=== PATIENT | female | born 1960 | race Caucasian/White ===

== ENCOUNTER 2016-12-01 23:02 | Emergency (ER) | payer OTHER ==
[2016-12-01] MEDS ORDERED: Ondansetron HCl/PF 4 MG/2 ML Vial ONE (23:14)
[2016-12-01 23:30] LABS: #Basophils 0.1 thou/uL (0.0-0.2); #Eosinphils 0.1 thou/uL (0.0-0.7); #Lymphocytes 1.9 thou/uL (1.20-3.40); #Monocytes 0.6 thou/uL (0.11-0.59); %Basophils 1.2 % (0.0-1.0); %Eosinophils 1.5 % (0.0-10.0); %Monocytes 7.8 % (0.0-10.0); Hematocrit 41.3 % (36.0-47.0); Mean Platelet Volume 7.1 fL (7.4-10.4); Red Blood Cell (RBC) Count 4.48 mill/uL (4.20-5.40); White Blood Cell (WBC) Count 7.6 thou/uL (4.8-10.8)
[2016-12-01 23:40] LABS: Anion Gap 16 mmol/L (10-20); BUN (Urea Nitrogen) 16 mg/dL (9.8-20.1); Calc. Creatinine Clearance 0 mL/min (70-130); Calcium 9.5 mg/dL (7.8-10.44); Carbon Dioxide 25 mmol/L (22-29); Chloride 103 mmol/L (98-107); Estimated GFR-MDRD 67
--- NOTE | 2016-12-02 02:22 | ERRECORD ---
[facility] EMERGENCY RECORD HPI MENTAL STATUS CHANGES (23:14 RW) CHIEF COMPLAINT: Patient presents for evaluation of confusion, Patient presents for evaluation of unresponsiveness, Patient presents for evaluation of blood sugar on scene was 22. now over 200 after D50 given by EMS. Pt's temp is 92 degrees. HISTORIAN: History provided by patient's spouse, , Additional history obtained from EMS. LOCATION: Symptoms are generalized. QUALITY: Patient is alert and oriented to person, place and time, [place] coma score is 15. SEVERITY: Maximum severity of symptoms moderate, Currently symptoms are moderate, Maximum severity of pain rated as 0/10, Current severity of pain rated as 0/10. TIME COURSE: Patient unable to describe onset of symptoms. ASSOCIATED WITH: Associated with nausea, intermittent, Associated with weakness, intermittent. EXACERBATED BY: Patient's condition exacerbated by nothing. RELIEVED BY: Patient's condition relieved by IV D50. RISK FACTORS: No CVA/TIA risk factors, No subarachnoid hemorrhage risk factors. CRITICAL CARE: Time spent providing critical care to patient was 30-74 minutes, 60 minutes. ROS (23:16 RW) CONSTITUTIONAL: Historian reports weight loss. EYES: Negative eye review of systems. ENT: Negative ears, nose, throat review of systems. CARDIOVASCULAR: Negative cardiovascular review of systems. RESPIRATORY: Negative respiratory review of systems. GI: Negative gastrointestinal review of systems. GENITOURINARY FEMALE: Negative genitourinary review of systems. MUSCULOSKELETAL: Negative musculoskeletal review of systems. SKIN: Negative skin review of systems. NEUROLOGIC: Historian reports confusion. ENDOCRINE: Negative endocrine review of systems. HEMO/LYMPHATIC: Normal hematologic/lymphatic system review. ALLERGIC/IMMUNOLOGIC: Normal allergy/immunologic system review. PSYCHIATRIC: Negative psychiatric review of systems. NOTES: All systems reviewed, negative except as described above. PAST MEDICAL HISTORY (23:08 PGRI) MEDICAL HISTORY: Notes: DM2, Flu vaccine up to date, Tetanus immunization up to date, Past medical history includes history of hypertension, which has been treated. FEMALE SURGICAL HISTORY: Surgical history of hysterectomy. PSYCHIATRIC HISTORY: No previous psychiatric history. SOCIAL HISTORY: Patient denies alcohol use, Patient denies drug use, Patient has no smoking history. &a-1R&a+25V*p+0X*[id number]*c202B*c15G*c2P*p-0X&a-25V&a+1R Name: Мария Barakat : 1960 F56 MedRec: [id number] AcctNum: [id number] Prepared: TueDec 02, 2016 05:46 by Interface Page 1 of 3 pMD [facility] EMERGENCY RECORD KNOWN ALLERGIES No Known Drug Allergies CURRENT MEDICATIONS No recorded medications VITAL SIGNS VITAL SIGNS: BP: 134/80, Pulse: 74, Resp: 18 (Non-Labored), Temp: 92.0 (Rectal), Pain: 0, O2 sat: 99 on Room Air, Time: 12/01/2016 23:10. (23:10 PGRI) BP: 140/77, Pulse: 79, Resp: 15, O2 sat: 100 on Room Air, Time: 12/01/2016 23:31. (23:31 MVIL) BP: 112/56, Pulse: 79, Temp: 93.4 (Rectal), O2 sat: 100 on Room Air, Time: 12/02/2016 00:07. (TueDec 02, 2016 00:07 MVIL) BP: 113/75, Pulse: 84, Resp: 23, Temp: 95.3 (Rectal), Pain: 0, O2 sat: 98 on Room Air, Time: 12/02/2016 01:05. (TueDec 02, 2016 01:05 MVIL) BP: 106/54, Pulse: 70, Resp: 20, Temp: 96.9 (Rectal), Pain: 0, O2 sat: 99 on Room Air, Time: 12/02/2016 02:04. (TueDec 02, 2016 02:04 MVIL) PHYSICAL EXAM (23:17 RWAG) CONSTITUTIONAL: Vital Signs Reviewed, Pulse normal, Blood pressure normal, Respiratory rate normal, Normal pulse oximetry, Patient appears non toxic, Patient appears pain free, hypothermia. HEAD: Head exam normal. EYES: Eye exam normal. ENT: ENT exam normal. NECK: Neck exam normal. RESPIRATORY CHEST: Respiratory and chest exam normal. CARDIOVASCULAR: Cardiovascular assessment normal. ABDOMEN FEMALE: Abdominal exam normal. BACK: Back exam normal. UPPER EXTREMITY: Upper extremity exam normal. LOWER EXTREMITY: Lower extremity exam normal. NEURO: Neuro exam findings include patient oriented to person, place and time, Speech normal, [place] coma scale 15. SKIN: Skin exam normal. LYMPHATIC: Lymphatic exam normal. PSYCHIATRIC: Psychiatric exam included findings of patient oriented to person place and time. EKG INTERPRETATION (23:41 RW) 12 LEAD EKG INTERPRETATION: 12 lead EKG interpreted by Emergency Department Physician at time of study, 12 lead EKG shows normal sinus rhythm, Rate (beats per minute): 69, with no ectopics, No previous EKG available for comparison, Conduction normal, ST segments normal, T waves, inverted, Leads affected: V2, [place] normal, Clinical impression: Normal EKG. MEDICATION ADMINISTRATION SUMMARY &a-1R&a+25V*p+0X*[id number]*c202B*c15G*c2P*p-0X&a-25V&a+1R Name: Мария Barakat : 1960 F56 MedRec: [id number] AcctNum: [id number] Prepared: TueDec 02, 2016 05:46 by Interface Page 2 of 3 pMD [facility] EMERGENCY RECORD Drug Name: ondansetron HCl intravenous, Dose Ordered: 8 mg, Route: IV Push, Status: Given, Time: 23:15 12/01/2016, Detailed record available in Medication Service section. PROBLEM LIST No recorded problems DIAGNOSIS (TueDec 02, 2016 02:05 RWAG) FINAL: PRIMARY: Hypoglycemia (unspecified), ADDITIONAL: HYPOTHERMIA INITIAL ENCOUNTER. PRESCRIPTION No recorded prescriptions DISPOSITION PATIENT: Disposition Type: Discharge, Disposition: *Discharge Home, Disposition Transport: Car, Condition: Improved. (TueDec 02, 2016 02:05 RWAG) Patient left the department. (TueDec 02, 2016 02:17 MVIL) Hall: MVIL=EMMA Norman, Serene PGRI=EMMA Calzada, Zahida RWAG=MD Wili, Bg &a-1R&a+25V*p+0X*[id number]*c202B*c15G*c2P*p-0X&a-25V&a+1R Name: Мария Barakat : 1960 F56 MedRec: [id number] AcctNum: [id number] Prepared: TueDec 02, 2016 05:46 by Interface Page 3 of 3 pMD MTDD
--- NOTE | 2016-12-02 02:28 | PICIS ---
[facility] EMERGENCY RECORD TRIAGE (23:06 PGRI) TRIAGE NOTES: BS initially 20 on scene and unresponsive for ems. 2amps D50 given. Rectal temp 92.0. Patient A&OX4 upon arrival but lethargic. (23:06 PGRI) PATIENT: NAME: Мария Barakat, AGE: 56, GENDER: female, : Tue1960, TIME OF GREET: TueDec 01, 2016 23:02, PREFERRED LANGUAGE: Tamazight, ETHNICITY: Not or , ECODE BILLING MAP: [facility], SSN: [id number], Zip Code: [address], KG WEIGHT: 72.57, PHONE: , , , PERSON ID: [id number]. (23:06 PGRI) COMPLAINT: Hypoglycemia. (23:06 PGRI) ADMISSION: URGENCY: 2 Emergent, ADMISSION SOURCE: Home, TRANSPORT: AMBULANCE - [facility], BED: TRIAGE. (23:06 PGRI) TRIAGE SCREENING: Patient denies suicidal ideation, Patient denies presence of domestic violence. (23:08 PGRI) PROVIDERS: TRIAGE NURSE: Zahida Calzada RN. (23:06 PGRI) KNOWN ALLERGIES No Known Drug Allergies CURRENT MEDICATIONS No recorded medications VITAL SIGNS VITAL SIGNS: BP: 134/80, Pulse: 74, Resp: 18 (Non-Labored), Temp: 92.0 (Rectal), Pain: 0, O2 sat: 99 on Room Air, Time: 12/01/2016 23:10. (23:10 PGRI) BP: 140/77, Pulse: 79, Resp: 15, O2 sat: 100 on Room Air, Time: 12/01/2016 23:31. (23:31 MVIL) BP: 112/56, Pulse: 79, Temp: 93.4 (Rectal), O2 sat: 100 on Room Air, Time: 12/02/2016 00:07. (TueDec 02, 2016 00:07 MVIL) BP: 113/75, Pulse: 84, Resp: 23, Temp: 95.3 (Rectal), Pain: 0, O2 sat: 98 on Room Air, Time: 12/02/2016 01:05. (TueDec 02, 2016 01:05 MVIL) BP: 106/54, Pulse: 70, Resp: 20, Temp: 96.9 (Rectal), Pain: 0, O2 sat: 99 on Room Air, Time: 12/02/2016 02:04. (TueDec 02, 2016 02:04 MVIL) NURSING ASSESSMENT: FOCUSED (23:06 MVIL) CONSTITUTIONAL: Patient arrives, via stretcher, via [facility], Unsteady gait, Inability to ambulate, History obtained from, Emergency Medical [facility], Patient appears comfortable, Patient cooperative, Patient, lethargic, Patient is, confused, Skin abnormal, Skin temperature is cold, Skin dry, Skin, pale in color, Mucous membranes pink, Mucous membranes moist, Patient is well-groomed, Patient complains of hypoglycemic, ems administered on scene 2 amps of D50 IV for FS of 33. Patient's rectal temp 92F. Bear hugger in place. Will reassess patient within the hour. NEURO: Focused neuro assessment findings include patient responsive to painful stimuli, cooperative, No facial droop &a-1R&a+25V*p+0X*t8662I*c202B*c15G*c2P*p-0X&a-25V&a+1R Name: Мария Barakat : 1960 F56 MedRec: [id number] AcctNum: [id number] Prepared: TueDec 02, 2016 05:51 by Interface Page 1 of 8 pMD [facility] EMERGENCY RECORD noted, Silent, Weakness, no numbness, No loss of consciousness. GCS: Eye opening: (2) - To pain, Verbal: (4) - Confused/disoritiented, Motor: (5) - Localizes Pain, GCS Total: 11. RESPIRATORY: Focused respiratory assessment findings include breath sounds clear, to bilateral upper lobes. ABDOMEN: Focused abdominal assessment findings include abdomen soft, non tender, Nausea present. GENITOURINARY FEMALE: Focused genitourinary assessment not applicable. MUSCULOSKELETAL: Focused musculoskeletal assessment findings include normal range of motion. LACERATION: Focused laceration assessment not applicable. SAFETY: Side rails up, Cart/Stretcher in lowest position, Family at bedside, Call light within reach, Hospital ID band on. NURSING PROCEDURE: BENCH MOLDER APPRENTICE (23:12 PGRI) PATIENT IDENTIFIER: Patient actively involved in identification process, Patient's identity verified by patient stating name, Patient's identity verified by patient stating date. BENCH MOLDER APPRENTICE: Cardiac monitoring indicated for mental status changes, Patient placed on manager retail store, Patient placed on non-invasive blood pressure monitor, Patient placed on continuous pulse oximetry. SAFETY: Side rails up, Cart/Stretcher in lowest position, Family at bedside, Call light within reach, Hospital ID band on. NURSING PROCEDURE: DISCHARGE NOTE (TueDec 02, 2016 02:12 MVIL) DISCHARGE: Patient discharged to home, ambulating without assistance, family driving, accompanied by //partner, Summary of Care printed/ provided, Patient requested and was provided an electronic copy of Discharge Instructions, Transition record given to patient, Discharge instructions given to patient, Above person(s) verbalized understanding of discharge instructions and follow-up care. BELONGINGS: Belongings and valuables with patient at time of discharge include:. NURSING PROCEDURE: EKG CHART (23:33 PGRI) PATIENT IDENTIFIER: Patient actively involved in identification process, Patient's identity verified by patient stating name, Patient's identity verified by patient stating date. EK lead EKG performed on the left chest, done by ers.ppg, first EKG. SAFETY: Side rails up, Cart/Stretcher in lowest position, Family at bedside, Call light within reach, Hospital ID band on. NURSING PROCEDURE: IV PATIENT IDENITIFIER: Patient actively involved in identification &a-1R&a+25V*p+0X*p1361V*c202B*c15G*c2P*p-0X&a-25V&a+1R Name: Мария Barakat : 1960 F56 MedRec: [id number] AcctNum: [id number] Prepared: TueDec 02, 2016 05:51 by Interface Page 2 of 8 D [facility] EMERGENCY RECORD process, Patient's identity verified by patient stating name, Patient's identity verified by patient stating date. (23:11 PGRI) Patient actively involved in identification process, Patient's identity verified by patient stating name, Patient's identity verified by hospital ID bracelet. (23:30 MVIL) IV SITE 1: IV therapy indicated for hydration, IV therapy indicated for medication administration, IV established, to the left antecubital, using a 20 gauge catheter, in one attempt, Saline lock established, Notes: started officer captain by ems. (23:11 PGRI) IV SITE 2: IV therapy indicated for medication administration, IV established, to the right hand, using a 20 gauge catheter, in one attempt, Saline lock established, Flushed with normal saline (mls): 10, Labs drawn at time of placement, labeled in the presence of the patient and sent to lab. (23:30 MVIL) FOLLOW-UP SITE 1: After procedure, 2x3 ensure dressing applied, After procedure, IV line connections checked and properly labeled, After procedure, no drainage at IV site, After procedure, no swelling at IV site, After procedure, no redness at IV site. (23:30 MVIL) SAFETY: Side rails up, Cart/Stretcher in lowest position, Family at bedside, Call light within reach, Hospital ID band on. (23:11 PGRI) NURSING PROCEDURE: NURSE NOTES NURSES NOTES: Notes: FS 217 AT THIS TIME. VSS. PATIENT REMAINS WITH BEAR HUGGER ACTIVE FOR A RECTAL TEMP OF 93.4F AT THIS TIME. (TueDec 02, 2016 00:08 MVIL) Notes: FS 268. PATIENT REMAINS ON BEAR HUGGER WITH AT RECTAL TEMP OF 95.3F AT THIS TIME. (TueDec 02, 2016 01:04 MVIL) Notes: pt now A&OX4 and awake and alert talking to . will recheck temp and BS now. (TueDec 02, 2016 01:58 PGRI) Notes: FS 269. RECTAL TEMP 96.9F. PATIENT AWAKE AND ALERT. STATES"WOULD LIKE TO GO HOME". DR. RASHEED MADE AWARE. (TueDec 02, 2016 02:02 MVIL) ORDER DETAILS Order Name: Accucheck, Status: Done, Time: 23:11 12/01/2016, User: PGRI, - Ordered for: MD Rasheed Richard, - Entered by: MD Rasheed Richard - Jeison Dec 01, 2016 23:10, - Quantity: 1, Order Name: Basic Metabolic Panel, Status: Active, Time: 23:10 12/01/2016, User: RWAG, - Ordered for: MD Rasheed Richard, - Entered by: MD Rasheed Richard - TueDec 01, 2016 23:10, - Quantity: 1, Order Name: CBC with Differential, Status: Active, Time: 23:10 12/01/2016, User: JAMES, - Ordered for: MD Rasheed Richard, &a-1R&a+25V*p+0X*e2736Q*c202B*c15G*c2P*p-0X&a-25V&a+1R Name: Мария Barakat : 1960 F56 MedRec: [id number] AcctNum: [id number] Prepared: [facility] Dec 02, 2016 05:51 by Interface Page 3 of 8 D [facility] EMERGENCY RECORD - Entered by: MD Rasheed Richard - TueDec 01, 2016 23:10, - Quantity: 1, Order Name: EKG 12 Lead in Emergency Room, Status: Active, Time: 23:10 12/01/2016, User: JAMES, - Ordered for: MD Rasheed Richard, - Entered by: MD Rasheed Richard - [facility] Dec 01, 2016 23:10, - Quantity: 1, Order Name: Miscellaneous Nurse Order(s), Status: Done, Time: 23:29 12/01/2016, User: NAHED, - Ordered for: MD Rasheed Richard, - Entered by: MD Rasheed Richard - [facility] Dec 01, 2016 23:13, - Quantity: 1, Order Name: Miscellaneous Nurse Order(s), Status: Done, Time: 23:12 12/01/2016, User: ROSALINE, - Ordered for: MD Rasheed Richard, - Entered by: MD Rasheed Richard - [facility] Dec 01, 2016 23:11, - Quantity: 1. MEDICATION ADMINISTRATION SUMMARY Drug Name: ondansetron HCl intravenous, Dose Ordered: 8 mg, Route: IV Push, Status: Given, Time: 23:15 12/01/2016, Detailed record available in Medication Service section. MEDICATION SERVICE (23:15 RW) ondansetron HCl intravenous: Order: ondansetron HCl intravenous (ondansetron HCl) - Dose: 8 mg : IV Push Schedule: Now Ordered by: Bg Rasheed MD Entered by: Bg Rasheed MD TueDec 01, 2016 23:12 , Acknowledged by: Serene Norman, EMMA TueDec 01, 2016 23:13 Documented as given by: Serene Norman RN TueDec 01, 2016 23:15 Patient, Medication, Dose, Route and Time verified prior to administration. Amount given: 8mg, IV SITE #1 IVP, initial medication, Catheter placement confirmed via flush prior to administration, IV site without signs or symptoms of infiltration during medication administration, No swelling during administration, No drainage during administration, IV flushed after administration, Correct patient, time, route, dose and medication confirmed prior to administration, Patient advised of actions and side-effects prior to administration, Allergies confirmed and medications reviewed prior to administration, Patient in position of comfort, Side rails up, Cart in lowest position, Family at bedside. HPI MENTAL STATUS CHANGES (23:14 RW) CHIEF COMPLAINT: Patient presents for evaluation of confusion, Patient presents for evaluation of unresponsiveness, Patient presents for evaluation of blood &a-1R&a+25V*p+0X*y7308Z*c202B*c15G*c2P*p-0X&a-25V&a+1R Name: Мария Barakat : 1960 F56 MedRec: [id number] AcctNum: [id number] Prepared: [facility] Dec 02, 2016 05:51 by Interface Page 4 of 8 pMD [facility] EMERGENCY RECORD sugar on scene was 22. now over 200 after D50 given by EMS. Pt's temp is 92 degrees. HISTORIAN: History provided by patient's spouse, , Additional history obtained from EMS. LOCATION: Symptoms are generalized. QUALITY: Patient is alert and oriented to person, place and time, Akira coma score is 15. SEVERITY: Maximum severity of symptoms moderate, Currently symptoms are moderate, Maximum severity of pain rated as 0/10, Current severity of pain rated as 0/10. TIME COURSE: Patient unable to describe onset of symptoms. ASSOCIATED WITH: Associated with nausea, intermittent, Associated with weakness, intermittent. EXACERBATED BY: Patient's condition exacerbated by nothing. RELIEVED BY: Patient's condition relieved by IV D50. RISK FACTORS: No CVA/TIA risk factors, No subarachnoid hemorrhage risk factors. CRITICAL CARE: Time spent providing critical care to patient was 30-74 minutes, 60 minutes. ROS (23:16 RWAG) CONSTITUTIONAL: Historian reports weight loss. EYES: Negative eye review of systems. ENT: Negative ears, nose, throat review of systems. CARDIOVASCULAR: Negative cardiovascular review of systems. RESPIRATORY: Negative respiratory review of systems. GI: Negative gastrointestinal review of systems. GENITOURINARY FEMALE: Negative genitourinary review of systems. MUSCULOSKELETAL: Negative musculoskeletal review of systems. SKIN: Negative skin review of systems. NEUROLOGIC: Historian reports confusion. ENDOCRINE: Negative endocrine review of systems. HEMO/LYMPHATIC: Normal hematologic/lymphatic system review. ALLERGIC/IMMUNOLOGIC: Normal allergy/immunologic system review. PSYCHIATRIC: Negative psychiatric review of systems. NOTES: All systems reviewed, negative except as described above. PAST MEDICAL HISTORY (23:08 PGRI) MEDICAL HISTORY: Notes: DM2, Flu vaccine up to date, Tetanus immunization up to date, Past medical history includes history of hypertension, which has been treated. FEMALE SURGICAL HISTORY: Surgical history of hysterectomy. PSYCHIATRIC HISTORY: No previous psychiatric history. SOCIAL HISTORY: Patient denies alcohol use, Patient denies drug use, Patient has no smoking history. PHYSICAL EXAM (23:17 RWAG) CONSTITUTIONAL: Vital Signs Reviewed, Pulse normal, Blood pressure normal, Respiratory rate normal, Normal pulse oximetry, Patient appears non toxic, Patient appears pain free, &a-1R&a+25V*p+0X*v5920B*c202B*c15G*c2P*p-0X&a-25V&a+1R Name: Мария Barakat : 1960 F56 MedRec: [id number] AcctNum: [id number] Prepared: Angela Dec 02, 2016 05:51 by Interface Page 5 of 8 pMD [facility] EMERGENCY RECORD hypothermia. HEAD: Head exam normal. EYES: Eye exam normal. ENT: ENT exam normal. NECK: Neck exam normal. RESPIRATORY CHEST: Respiratory and chest exam normal. CARDIOVASCULAR: Cardiovascular assessment normal. ABDOMEN FEMALE: Abdominal exam normal. BACK: Back exam normal. UPPER EXTREMITY: Upper extremity exam normal. LOWER EXTREMITY: Lower extremity exam normal. NEURO: Neuro exam findings include patient oriented to person, place and time, Speech normal, Akira coma scale 15. SKIN: Skin exam normal. LYMPHATIC: Lymphatic exam normal. PSYCHIATRIC: Psychiatric exam included findings of patient oriented to person place and time. EVENTS TRANSFER: Triage to Emergency Triage. (TueDec 01, 2016 23:06 PGRI) Emergency Triage to Emergency Room -01. (23:06 PGRI) Removed from Emergency Emergency Room -01. (TueDec 02, 2016 02:17 MVIL) EKG INTERPRETATION (23:41 RWAG) 12 LEAD EKG INTERPRETATION: 12 lead EKG interpreted by Emergency Department Physician at time of study, 12 lead EKG shows normal sinus rhythm, Rate (beats per minute): 69, with no ectopics, No previous EKG available for comparison, Conduction normal, ST segments normal, T waves, inverted, Leads affected: V2, [place] normal, Clinical impression: Normal EKG. PROBLEM LIST No recorded problems DIAGNOSIS (TueDec 02, 2016 02:05 RWAG) FINAL: PRIMARY: Hypoglycemia (unspecified), ADDITIONAL: HYPOTHERMIA INITIAL ENCOUNTER. DISPOSITION PATIENT: Disposition Type: Discharge, Disposition: *Discharge Home, Disposition Transport: Car, Condition: Improved. (TueDec 02, 2016 02:05 RWAG) Patient left the department. (TueDec 02, 2016 02:17 MVIL) INSTRUCTION (TueDec 02, 2016 02:06 RWAG) DISCHARGE: HYPOGLYCEMIA INSULIN REACTION, HYPOTHERMIA, TREATMENT. FOLLOWUP: DO BOSS KRISTEL, [facility], [address] [place] [id number], [phone], Follow up with Primary Care Physician &a-1R&a+25V*p+0X*i6917J*c202B*c15G*c2P*p-0X&a-25V&a+1R Name: Мария Barakat : 1960 F56 MedRec: [id number] AcctNum: [id number] Prepared: TueDec 02, 2016 05:51 by Interface Page 6 of 8 pMD [facility] EMERGENCY RECORD in 2-3 days. SPECIAL: Follow-up with your PCP. PRESCRIPTION No recorded prescriptions IMAGING *DISCHARGE INSTRUCTIONS RECEIPT: Image captured from scanner. (TueDec 02, 2016 02:12 MVIL) *SUPPLY CHARGE SHEET: Image captured from scanner. (TueDec 02, 2016 02:12 MVIL) *EKG: Image captured from scanner. (TueDec 02, 2016 05:41 MVIL) ADMIN (TueDec 02, 2016 05:40 RWAG) DIGITAL SIGNATURE: MD Rasheed Richard. RESULTS LABORATORY: Accuchek Collection DT: TueDec 01, 2016 23:15, *Accuchek 205 - H mg/dL, Range (70-110), NOTIFIED PHYSICIAN . (23:19 RWAG) CBC with Differential Collection DT: TueDec 01, 2016 23:24, White Blood Cell (WBC) Count 7.6 thou/uL, Range (4.8-10.8), Red Blood Cell (RBC) Count 4.48 mill/uL, Range (4.20-5.40), Hemoglobin 13.4 g/dL, Range (12.0-16.0), Hematocrit 41.3 %, Range (36.0-47.0), Mean Corpuscular Volume 92.1 fl, Range (81.0-99.0), Mean Corpuscular Hemoglobin 29.9 pg, Range (27.0-31.0), Mean Corpuscular HGB CONC 32.5 g/dL, Range (32.0-36.0), RBC Distribution Width 11.5 %, Range (11.5-14.5), Platelet Count 227 thou/uL, Range (130-400), *Mean Platelet Volume 7.1 - L fL, Range (7.4-10.4), %Neutrophils 64.8 %, Range (42.0-75.0), %Lymphocytes 24.7 %, Range (21.0-51.0), %Monocytes 7.8 %, Range (0.0-10.0), %Eosinophils 1.5 %, Range (0.0-10.0), *%Basophils 1.2 - H %, Range (0.0-1.0), #Neutrophils 5.0 thou/uL, Range (1.40-6.50), #Lymphocytes 1.9 thou/uL, Range (1.20-3.40), *#Monocytes 0.6 - H thou/uL, Range (0.11-0.59), #Eosinphils 0.1 thou/uL, Range (0.0-0.7), #Basophils 0.1 thou/uL, Range (0.0-0.2). (23:38 RWAG) Basic Metabolic Panel Collection DT: TueDec 01, 2016 23:24, Sodium 140 mmol/L, Range (136-145), Potassium 3.8 mmol/L, Range (3.5-5.1), Chloride 103 mmol/L, Range (98-107), Carbon Dioxide 25 mmol/L, Range (22-29), Anion Gap 16 mmol/L, Range (10-20), BUN (Urea Nitrogen) 16 mg/dL, Range (9.8-20.1), Creatinine 0.87 mg/dL, Range (0.6-1.1), Estimated GFR-MDRD 67 , Reference Range for Estimated GFR: &a-1R&a+25V*p+0X*a3422N*c202B*c15G*c2P*p-0X&a-25V&a+1R Name: Мария Barakat : 1960 F56 MedRec: [id number] AcctNum: [id number] Prepared: TueDec 02, 2016 05:51 by Interface Page 7 of 8 pMD [facility] EMERGENCY RECORD Greater than 90, mL/min/1.73 m2 NOTE: The MDRD equation has not been validated for use, with the elderly (over 70 years of age), women, patients with, serious comorbid condition or persons with extremes of body size, muscle, mass, or nutritional status. , *Glucose 253 - H mg/dL, Range (70-105), Calcium 9.5 mg/dL, Range (7.8-10.44). (TueDec 02, 2016 00:02 RWAG) Accuchek Collection DT: TueDec 02, 2016 00:23, *Accuchek 217 - H mg/dL, Range (70-110), NOTIFIED PHYSICIAN . (TueDec 02, 2016 00:58 RWAG) Accuchek Collection DT: TueDec 02, 2016 01:20, *Accuchek 268 - H mg/dL, Range (70-110). (TueDec 02, 2016 02:05 RWAG) Hall: NAHED=EMMA Norman, Serene PGRI=EMMA Calzada, Zahida RWAG=MD Wili, Bg &a-1R&a+25V*p+0X*j0812B*c202B*c15G*c2P*p-0X&a-25V&a+1R Name: Мария Barakat : 1960 F56 MedRec: [id number] AcctNum: [id number] Prepared: TueDec 02, 2016 05:51 by Interface Page 8 of 8 pMD [facility] MEDICATION RECONCILIATION You were seen in the Emergency Department on: TueDec 01, 2016 KNOWN ALLERGIES No Known Drug Allergies MEDICATIONS GIVEN WHILE IN THE EMERGENCY DEPARTMENT ondansetron HCl intravenous (ondansetron HCl) - Dose: 8 milligram(s) : IV Push Notes from the emergency department Reviewed with family &a-1R&a+25V*p+0X*s5278Q*c202B*c15G*c2P*p-0X&a-25V&a+1R Name: Мария Barakat : 1960 F56 MedRec: [id number] AcctNum: [id number] Prepared: TueDec 02, 2016 05:51 by Interface pMD MTDHailey
== END 2016-12-02 02:11 | disposition home or self-care (01) ==
LOC: BURERS 23:02
DX: T68.XXXA Hypothermia, initial encounter (principal); E11.649 Type 2 diabetes mellitus with hypoglycemia without coma
CPT/HCPCS: 36416; 80048; 85025; 93005; 96374; J2405

== ENCOUNTER 2017-02-14 08:00 | Outpatient (CLI) | payer OTHER ==
[2017-02-14 08:53] LABS: ALT (SGPT) 18 U/L (0-55); AST (SGOT) 19 U/L (5-34); Albumin 4.3 g/dL (3.5-5.0); Alkaline Phosphatase 58 U/L (40-150); Anion Gap 15 mmol/L (10-20); BUN (Urea Nitrogen) 12 mg/dL (9.8-20.1); Bilirubin, Total 0.6 mg/dL (0.2-1.2); Calc. Creatinine Clearance 0 mL/min (70-130); Calcium 9.6 mg/dL (7.8-10.44); Carbon Dioxide 25 mmol/L (22-29); Cardiac Risk 1.8 (Less than 4.5); Chloride 106 mmol/L (98-107); Cholesterol 222 mg/dL (< 200 Desired); Estimated GFR-MDRD 71; Globulin 3.2 g/dL (2.4-3.5); Glucose 81 mg/dL (70-105); HDL Cholesterol 122 mg/dL (>60 Neg Risk); LDL Cholesterol, Calculated 88 mg/dL; Protein, Total 7.5 g/dL (6.0-8.3); Sodium 142 mmol/L (136-145); Triglycerides 58 mg/dL (Less than 150)
== END 2017-02-14 08:01 | disposition home or self-care (01) ==
LOC: BURLAB 08:00
PROVIDERS: ATTEND Internal Medicine Endocrinology, Diabetes & Metabolism
DX: E10.65 Type 1 diabetes mellitus with hyperglycemia (principal); G25.81 Restless legs syndrome; Z79.899 Other long term (current) drug therapy
CPT/HCPCS: 36415; 80053; 80061; 83036

== ENCOUNTER 2017-03-10 07:53 | Outpatient (CLI) | payer OTHER ==
[2017-03-10 08:38] LABS: ALT (SGPT) 10 U/L (0-55); AST (SGOT) 18 U/L (5-34); Albumin 4.7 g/dL (3.5-5.0); Alkaline Phosphatase 56 U/L (40-150); Anion Gap 16 mmol/L (10-20); BUN (Urea Nitrogen) 15 mg/dL (9.8-20.1); Bilirubin, Total 0.7 mg/dL (0.2-1.2); Calc. Creatinine Clearance 0 mL/min (70-130); Calcium 9.8 mg/dL (7.8-10.44); Carbon Dioxide 28 mmol/L (22-29); Chloride 101 mmol/L (98-107); Estimated GFR-MDRD 64; Globulin 3.3 g/dL (2.4-3.5); Glucose 140 mg/dL (70-105); Potassium 3.7 mmol/L (3.5-5.1); Sodium 141 mmol/L (136-145)
[2017-03-10 08:54] LABS: Free T4 (Free Thyroxine) 1.14 ng/dL (0.70-1.48); Thyroid Stimulating Hormone 1.6528 uIU/mL (0.35-4.94)
[2017-03-10 18:10] LABS: Hep C IgG Ab Non-Reactive (NonReactive); Hep C Index 0.17 S/CO (0-0.79)
== END 2017-03-10 07:54 | disposition home or self-care (01) ==
LOC: BURLAB 07:53
PROVIDERS: ATTEND Internal Medicine Endocrinology, Diabetes & Metabolism
DX: E10.65 Type 1 diabetes mellitus with hyperglycemia (principal); E87.70 Fluid overload, unspecified; I10 Essential (primary) hypertension
CPT/HCPCS: 36415; 80053; 83880; 84439; 84443; 86803

== ENCOUNTER 2017-06-14 07:46 | Outpatient (CLI) | payer OTHER ==
[2017-06-14 09:16] LABS: ALT (SGPT) 11 U/L (8-55); AST (SGOT) 14 U/L (5-34); Albumin 4.2 g/dL (3.5-5.0); Alkaline Phosphatase 56 U/L (40-150); Anion Gap 15 mmol/L (10-20); BUN (Urea Nitrogen) 19 mg/dL (9.8-20.1); Bilirubin, Total 0.8 mg/dL (0.2-1.2); Calc. Creatinine Clearance 0 mL/min (70-130); Carbon Dioxide 28 mmol/L (22-29); Chloride 105 mmol/L (98-107); Estimated GFR-MDRD 59; Globulin 3.2 g/dL (2.4-3.5); Glucose 136 mg/dL (70-105); Potassium 5.4 mmol/L (3.5-5.1); Protein, Total 7.4 g/dL (6.0-8.3); Sodium 143 mmol/L (136-145)
[2017-06-14 19:49] LABS: Creatinine, Urine 352.91 mg/dL (47-110); Microalbumin Urine 2.7 mg/dL (0.5-50.0); Microalbumin/Creat Ratio 7.7 mg/g (Less than 30)
== END 2017-06-14 07:47 | disposition home or self-care (01) ==
LOC: BURLAB 07:46
PROVIDERS: ATTEND Internal Medicine Endocrinology, Diabetes & Metabolism
DX: E10.65 Type 1 diabetes mellitus with hyperglycemia (principal); E87.70 Fluid overload, unspecified; G25.81 Restless legs syndrome; I10 Essential (primary) hypertension
CPT/HCPCS: 36415; 80053; 82043; 83036

== ENCOUNTER 2017-08-28 03:18 | Emergency (ER) | payer OTHER ==
[2017-08-28] MEDS ORDERED: Dextrose 50% Abboject 50 ML SYRINGE ONE (03:36)
[2017-08-28 04:24] LABS: #Basophils 0.1 thou/uL (0.0-0.2); #Eosinphils 0.1 thou/uL (0.0-0.7); #Lymphocytes 1.6 thou/uL (1.20-3.40); #Monocytes 0.7 thou/uL (0.11-0.59); #Neutrophils 4.1 thou/uL (1.40-6.50); %Basophils 1.8 % (0.0-1.0); %Eosinophils 0.9 % (0.0-10.0); %Lymphocytes 24.9 % (21.0-51.0); %Monocytes 10.5 % (0.0-10.0); %Neutrophils 61.9 % (42.0-75.0); Hemoglobin 13.7 g/dL (12.0-16.0); Mean Corpuscular HGB CONC 33.2 g/dL (32.0-36.0); Mean Corpuscular Hemoglobin 30.4 pg (27.0-31.0); Mean Corpuscular Volume 91.4 fl (81.0-99.0); Mean Platelet Volume 7.2 fL (7.4-10.4); Platelet Count 158 thou/uL (130-400); RBC Distribution Width 10.8 % (11.5-14.5); Red Blood Cell (RBC) Count 4.52 mill/uL (4.20-5.40); White Blood Cell (WBC) Count 6.6 thou/uL (4.8-10.8)
[2017-08-28 04:35] LABS: Anion Gap 16 mmol/L (10-20); BUN (Urea Nitrogen) 18 mg/dL (9.8-20.1); Calc. Creatinine Clearance 0 mL/min (70-130); Calcium 9.7 mg/dL (7.8-10.44); Carbon Dioxide 25 mmol/L (22-29); Chloride 103 mmol/L (98-107); Estimated GFR-MDRD 78; Glucose 104 mg/dL (70-105); Potassium 3.4 mmol/L (3.5-5.1); Sodium 141 mmol/L (136-145)
[2017-08-28] MEDS ORDERED: Insulin Regular 300 UNITS/3 ML VIAL ONE (05:02)
== END 2017-08-28 07:29 | disposition home or self-care (01) ==
LOC: BURERS 03:18
DX: E11.649 Type 2 diabetes mellitus with hypoglycemia without coma (principal); I10 Essential (primary) hypertension
CPT/HCPCS: 36416; 80048; 85025; 96361; 96372; 96374; 96375; J1815